=== PATIENT | female | born 1975 | race Caucasian/White ===

== ENCOUNTER 2017-02-19 10:09 | Day surgery (SDC) | payer OTHER ==
[~2017-02-19] VITALS: Ht 167.6 cm; Wt 134.0 kg
[~2017-02-19 10:09] MED LIST: CLARITIN10 M3 PO; IBUPROFEN200 M1 PO; LEXAPRO10 MG PO; TYLENOL WITH C1 EACH PO
[2017-02-19 10:40] VITALS: BP 147/86
[2017-02-19] MEDS ORDERED: HYDROCODON-ACE1 EAC7 PO (13:03)
[2017-02-19] MEDS ORDERED: IBUPROFEN800 MG PO (13:03)
[2017-02-19 15:15] VITALS: BP 133/72
[2017-02-19 16:22] VITALS: BP 137/75
[2017-02-19 17:55] VITALS: BP 140/80
[2017-02-19 19:42] VITALS: BP 138/70
== END 2017-02-19 20:06 | disposition home or self-care (01) ==
LOC: SDC 10:09
DX: N92.0 Excessive and frequent menstruation with regular cycle (principal); N94.6 Dysmenorrhea, unspecified; N85.6 Intrauterine synechiae; K66.0 Peritoneal adhesions (postprocedural) (postinfection); E66.01 Morbid (severe) obesity due to excess calories; Z68.42 Body mass index [BMI] 45.0-49.9, adult; M19.90 Unspecified osteoarthritis, unspecified site; Z83.3 Family history of diabetes mellitus; Z82.61 Family history of arthritis; Z82.5 Family history of asthma and other chronic lower respiratory diseases
CPT/HCPCS: 88307; J0690; J1100; J1170; J1885; J2250; J2405; J2710; J3010